=== PATIENT | female | born 1965 | race American Indian/Alaskan Native ===

== ENCOUNTER 2018-02-04 22:22 | Emergency (ER) | payer SELFPAY ==
[2018-02-04 23:08] VITALS: BP 139/74
--- NOTE | 2018-02-04 23:49 | XRay Report ---
FINAL REPORT PROCEDURE: XR HAND 3+V LT TECHNIQUE: LEFT hand radiographs, AP, lateral, and oblique views. CPT 69491-SZ HISTORY: Left hand pain and swelling/injury COMPARISON: No prior studies are available for comparison. FINDINGS: Fracture (s) and/or Dislocation(s): None . Alignment: Normal . Joint space(s): Normal . Soft tissues: Normal . Bone mineralization: Normal . Foreign bodies: None . IMPRESSION: Normal Examination .
[2018-02-05] MEDS ORDERED: MOTRIN PO ONE (01:57)
[2018-02-05] MEDS ORDERED: MOTRIN ONE (01:59)
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
== END 2018-02-05 02:35 | disposition home or self-care (01) ==
LOC: ED 22:22
DX: S69.92XA Unspecified injury of left wrist, hand and finger(s), initial encounter (principal); S61.313A Laceration without foreign body of left middle finger with damage to nail, initial encounter; Z88.5 Allergy status to narcotic agent; X58.XXXA Exposure to other specified factors, initial encounter; Y93.89 Activity, other specified; Y99.8 Other external cause status; Y92.488 Other paved roadways as the place of occurrence of the external cause